=== PATIENT | male | born 1990 | race African-American/Black ===

== ENCOUNTER 2020-06-11 16:28 | Emergency (ER) | payer OTHER, SELFPAY ==
--- NOTE | ~2020-06-11 | CT_ITS ---
EXAMINATION: CTA chest PE protocol DATE: 06/11/2020 20:22 CDT INDICATION: Positive d-dimer. Dyspnea. TECHNIQUE: Computed tomographic angiography (CTA) of the chest was performed with 100 mL Omnipaque-35 0 intravenous contrast. The dose-length product was 750.90 mGy-cm. Maximum intensity projection 3D-re constructions of the aorta and other arteries were constructed by the technologist on a separate work station. Automated exposure control and iterative reconstruction technique were employed. COMPARISON: None. FINDINGS: Study is technically adequate without evidence for pulmonary embolism. Heart size normal. N o significant pleural or pericardial effusion. No thoracic lymphadenopathy. There are patchy groundgl ass opacities throughout both lungs, consistent with pneumonia. IMPRESSION: 1. No evidence for pulmonary embolism. 2: Patchy groundglass opacities throughout both lungs, compatible with pneumonia. Reviewed, dictated and finalized at location A. IMPRESSION: 1. No evidence for pulmonary embolism. 2: Patchy groundglass opacities throughout both lungs, compatible with pneumoni a.
--- NOTE | ~2020-06-11 | XR_ITS ---
EXAMINATION: XR chest 1V portable 06/11/2020 17:51 INDICATION: Midsternal chest pain PROCEDURE: AP view of the chest COMPARISON: 11/19/2011 FINDINGS: The lungs are clear. The cardiomediastinal silhouette is within normal limits. There are no pleural effusions. There is no pneumothorax suspected. IMPRESSION: 1: NO ACUTE CARDIOPULMONARY DISEASE. Reviewed, dictated and finalized at location A.
[2020-06-11 16:39] VITALS: BP 145/76; PULSE 90; RESP 18; TEMP 36.4; O2SAT 98
--- NOTE | 2020-06-11 16:43 | ECG_ITS ---
Measurements Intervals Venus Rate: 94 P: 64 CA: 128 QRS: 59 QRSD: 83 T: 42 QT: 327 QTc: 410 Interpretive Statements SINUS RHYTHM BASELINE WANDER- I, II, AVR, AVL, AVF NORMAL ECG Electronically Signed On 06-11-2020 20:09:27 CDT by Jluis Mata D.O.
[2020-06-11 16:56] LABS: Basophils Percent Auto 0.3 % (0.2-1.2); Eosinophils Percent Auto 0.7 % (0-4.4); Hematocrit 46.4 % (42.0-52.0); Hemoglobin 15.9 g/dL (14.0-18.0); Immature Granulocyte Absolute 0.01 K/mm3 (0.00-0.031); Immature Granulocyte Percent A 0.3 % (0-0.5); Lymphocytes Absolute Auto 0.81 K/mm3 (0.9-3.2); Lymphocytes Percent Auto 26.6 % (18.3-44.2); Mean Corpuscular HGB Conc 34.3 g/dl (32-36); Mean Corpuscular Hemoglobin 30.6 pg (26-34); Mean Corpuscular Volume 89.4 fl (80-100); Mean Platelet Volume 10.5 fl (7.4-10.4); Monocytes Absolute Auto 0.3 K/mm3 (0.1-0.6); Monocytes Percent Auto 9.9 % (2.6-8.5); Neutrophils Absolute Auto 1.9 K/mm3 (1.3-6.7); Neutrophils Percent Auto 62.2 % (45.5-73.1); Platelet Count Result 174 k/mm3 (150-375); Red Blood Count 5.19 M/mm3 (4.6-6.20); Red Cell Distribution Width 10.9 % (11.5-14.5)
[2020-06-11] MEDS: ASPIRIN 81 MG CHEWABLE TABLET 324 MG PO (16:58)
[2020-06-11 17:05] LABS: INR 0.9; Prothrombin Time 12.2 Seconds (11.1-14.7)
[2020-06-11 17:06] LABS: Anion Gap 7 mmol/L (8-16); Blood Urea Nitrogen 18 mg/dL (9-20); Calcium 9.5 mg/dL (8.4-10.2); Carbon Dioxide 28 mmol/L (22-30); Chloride 103 mmol/L (98-107); Estimated CRCL calculation 71 ml/min; Estimated Glomerular Filt Rate > 60; Glucose 98 mg/dL (75-110); Partial Thromboplastin Time 28.2 SECONDS (22.3-36.8); Potassium 4.7 mmol/L (3.4-5.0); Sodium 138 mmol/L (137-145)
[2020-06-11 17:18] LABS: Troponin I < 0.012 ng/mL (0.000-0.034)
--- NOTE | 2020-06-11 17:44 | ED.GENADULT ---
HPI - General Adult General Chief complaint: Unspecified Stated complaint: congestion, sinus infection Time Seen by Provider: 06/11/20 16:54 Source: patient Mode of arrival: ambulatory Limitations: no limitations History of Present Illness HPI narrative: Patient presents for evaluation of respiratory symptoms. He states he lives in [facility] with his grandmother, who recently . He is currently in town to attend her services for . States over the course of the last week he has experienced some sinus drainage and left-sided chest pain. Today left-sided chest pain worsened has been radiating across the right side of his chest. Pain is only present with deep inspiration. Reports shortness of breath both at rest and with exertion. Denies any significant cough. He has an underlying history of asthma and thought his symptoms were related to this. He states he has been using his albuterol inhaler more frequently as of late. He does not smoke. He states he is currently staying with his aunt and his cousin, both of whom stated that they lost their senses of taste and smell today. Is experiencing diarrhea yesterday and today. He denies any nausea, vomiting, abdominal pain. His HR was elevated based on readings he was getting from his watch. No history of Covid. He has not been vaccinated for COVID. He states he has a metallic taste in his mouth for awhile . Related Data Allergies Allergy/AdvReac Type Severity Reaction Status Date / Time No Known Allergies Allergy Mild Verified 06/11/20 17:00 Review of Systems Review of Systems: Narrative: CONSTITUTIONAL: Reports subjective fever. Denies chills, or sweats. EYES: Reports tearing from both eyes. Denies visual changes, redness, or discharge. ENT: Reports sinus drainage and congestion. Reports metallic taste in his mouth. CARDIOVASCULAR: Reports chest pain, palpitations, or edema. RESPIRATORY: Reports shortness of breath. Denies significant cough. GASTROINTESTINAL: Diarrhea. Denies abdominal pain, nausea, vomiting. GENITOURINARY: Denies dysuria or hematuria. SKIN: Denies rash or itching. MUSCULOSKELETAL: Denies back pain, joint pain, or myalgia. NEUROLOGIC: Denies headache, numbness, dizziness, or weakness. PSYCHIATRIC: Denies anxiety or depression. [facility] Past Medical History Medical History (Updated 06/11/20 @ 20:58 by JOANN Montoya, BC) Asthma Surgical History Surgical History No pertinent past surgical history Social History Social History Smoking status: Never smoker Alcohol intake: never Substance use: never Living arrangements: with family Gender identity (if verbalized by the patient): Male Spiritual care concerns: No Exam Narrative: Exam Narrative: GENERAL: Well-appearing, well-nourished, and in no acute distress. HEAD: Normocephalic, atraumatic. EYES: PERRLA and EOMI. ENT: Nares clear, no rhinorrhea or epistaxis. Mucous membranes moist. Oropharynx without tonsillar hypertrophy exudate or other lesions. Bilateral TMs pearly baker nonbulging NECK: Supple. No adenopathy or masses. No carotid bruits or JVD CHEST: Clear to auscultation. No respiratory distress. No wheezes rales or rhonchi HEART: Regular rate and rhythm. No murmur heard. Normal peripheral pulses. ABDOMEN: Soft, nontender, nondistended, normal active bowel sounds. EXTREMITIES: Normal range of motion. No edema. SKIN: Warm, dry, no rash. NEURO: No focal deficits. Alert and oriented x3. PSYCH: Normal mood and affect. Course Course Emergency Course: This is a 30-year-old male who presented with complaints of chest pain, shortness of breath, change in sense of taste. His family members that have symptoms consistent with Covid. He has not been vaccinated and has no history of Covid. Reported tachycardia. D-dimer was elevated so CTA
[2020-06-11] MEDS: SODIUM CHLORIDE 0.9% IV 1,000 ML 999 ML IV CONT (18:27)
[2020-06-11 18:35] LABS: Lactic Acid Reflex 0.7 mmol/L (0.7-2.1)
[2020-06-11 18:36] LABS: Alanine Aminotransferase 31 U/L (4-50); Albumin Level 4.2 g/dL (3.5-5.1); Alkaline Phosphatase 59 U/L (38-126); Aspartate Amino Transferase 43 U/L (17-59); Bilirubin,Total 0.7 mg/dL (0.2-1.3)
[2020-06-11 18:48] LABS: D Dimer 1.33 ug/mL (<0.48)
[2020-06-11 19:00] VITALS: BP 140/72; PULSE 89; RESP 17; O2SAT 99
[2020-06-11 20:13] LABS: Troponin I < 0.012 ng/mL (0.000-0.034)
[2020-06-11 20:56] VITALS: PULSE 70
[2020-06-11] MEDS: AZITHROMYCIN 250 MG TABLET 500 MG PO (21:20)
[2020-06-11] MEDS: AMOXICILLIN 500 MG CAPSULE 1000 MG PO (21:20)
[2020-06-11 21:29] VITALS: BP 140/80; PULSE 89; RESP 16; O2SAT 99
[2020-06-12 19:58] LABS: SARS-CoV-2 RNA PCR Positive
== END 2020-06-11 21:31 | disposition home or self-care (01) ==
PROVIDERS: Emergency Medicine; Emergency Provider Nurse Practitioner
DX: U07.1 COVID-19 (principal); J12.82 Pneumonia due to coronavirus disease 2019; N28.9 Disorder of kidney and ureter, unspecified; J45.909 Unspecified asthma, uncomplicated
CPT/HCPCS: 36415; 71045; 71275; 80048; 80076; 83605; 84484; 85025; 85380; 85610; 85730; 93005; 96360; 96361; 99284; A9270; C9803; J7030; Q9967; U0003; U0005